=== PATIENT | female | born 1975 | race Caucasian/White ===

== ENCOUNTER 2022-11-22 20:29 | Emergency (ER) | payer OTHER ==
[2022-11-22 20:45] VITALS: BP 125/77; PULSE 82; RESP 17; TEMP 98.2; BMI 26.7
[2022-11-22 22:40] LABS: BASO % 0.9 % (0-2.0); EOS % 1.6 % (0-4.5); HEMATOCRIT 40.5 % (32.4-45.2); HEMOGLOBIN 13.8 GM/dL (10.7-15.3); LYMPH % 38.8 % (8-40); MCH 31.6 pg (25.7-33.7); MCHC 34.1 g/dl (32.0-36.0); MEAN CELL VOLUME 92.5 fl (80-96); MEAN PLT VOLUME 8.4 fl (7.5-11.1); NEUT % 51.7 % (42.8-82.8); PLATELET COUNT 252 10^3/uL (134-434); RBC 4.38 M/mm3 (3.60-5.2); RDW 14.5 % (11.6-15.6); WHITE BLOOD COUNT 9.1 K/mm3 (4.0-10.0)
[2022-11-22 23:00] LABS: POTASSIUM 4.4 mmol/L (3.5-5.1)
[2022-11-22 23:02] LABS: CALCIUM 8.6 mg/dL (8.5-10.1)
[2022-11-22 23:03] LABS: ALBUMIN 3.3 g/dl (3.4-5.0); BLOOD UREA NITROGEN 21.3 mg/dL (7-18)
[2022-11-22 23:06] LABS: CREATININE 0.7 mg/dL (0.55-1.3)
[2022-11-22 23:08] LABS: BILIRUBIN,TOTAL 0.1 mg/dL (0.2-1); TOT PROT 6.8 g/dl (6.4-8.2)
[2022-11-23] MEDS ORDERED: ACETAMINOPHEN 1000 MG/100 ML BAG IVPB ONE (01:56)
[2022-11-23] MEDS ORDERED: ACETAMINOPHEN INJECTION 100 ML IVPB ONE ×2 (01:57→02:03)
== END 2022-11-23 03:49 | disposition home or self-care (01) ==
LOC: JERFT 20:29 → JER 20:29
PROC: 3E033NZ Introduction of Analgesics, Hypnotics, Sedatives into Peripheral Vein, Percutaneous Approach (ICD-10-PCS; principal; 2022-11-23)
DX: M54.2 Cervicalgia (principal); M79.601 Pain in right arm; R22.31 Localized swelling, mass and lump, right upper limb
CPT/HCPCS: 36415; 70491-TC; 71260-TC; 80053; 84703; 85025; 99285-25; Q9967